=== PATIENT | male | born 1970 | race American Indian/Alaskan Native ===

== ENCOUNTER 2020-10-19 07:52 | Emergency (ER) | payer OTHER ==
[2020-10-19 08:44] LABS: Bilirubin,Urine NEG (Negative); Blood,Urine LG (Negative); Mucus,Urine 3+ /HPF; Urobilinogen,Urine < 2.0 mg/dL (<2.0)
[2020-10-19 08:45] LABS: Color,Urine Amber (Yellow); RBC,Urine > 182.0 /HPF (0.0-6.0); WBC,Urine < 1.0 /HPF (0.0-6.0)
[2020-10-19] MEDS ORDERED: MORPHINE 4 MG/1 ML INJ IM ONE (08:54)
[2020-10-19] MEDS ORDERED: ONDANSETRON 4 MG/2 ML INJ IM ONE (08:54)
[2020-10-19 08:58] LABS: Basophils % (Auto) 0.4 % (0.0-1.8); Eosinophils % (Auto) 0.1 % (0.0-4.3); Hematocrit 46.7 % (35.5-45.6); Hemoglobin 15.2 gm/dl (11.8-15.2); Lymphocytes # (Auto) 0.8 K/mm3 (1.2-5.4); Lymphocytes % (Auto) 8.3 % (13.4-35.0); Mean Corpuscular HGB Conc 33 % (32-34); Mean Corpuscular Volume 84 fl (84-94); Monocytes # (Auto) 0.4 K/mm3 (0.0-0.8); Monocytes % (Auto) 4.3 % (0.0-7.3); Platelet Count 282 K/mm3 (140-440); Red Blood Count 5.55 M/mm3 (3.65-5.03); Red Cell Distribution Width 13.6 % (13.2-15.2)
--- NOTE | 2020-10-19 09:07 | Emergency Department Report ---
ED General Adult HPI - General Chief complaint: Abdominal Pain Stated complaint: BACK/STOMACH PAIN Time Seen by Provider: 10/19/20 08:47 Source: patient Mode of arrival: Ambulatory Limitations: No Limitations - History of Present Illness Initial comments: 50-year-old -[place] male patient without past medical history presents with complaints of sudden onset of right flank pain now moving around to his right side of his abdomen and right lower quadrant starting yesterday. He denies any history of kidney stones. He admits to decreased urination and hematuria, but denies dysuria, testicular pain/swelling, stool changes, or fever/chills/sweats. Patient also admits to nausea and vomiting without hematemesis/coffee-ground emesis. He rates his current pain as a 10/10 in severity and describes it as shooting and aching. -: Sudden - Related Data Previous Rx's Medication Instructions Recorded Last Taken Type HYDROcodone/APAP 5-325 [Lostant 1 each PO Q6HR PRN #10 tablet 10/19/20 Unknown Rx 5-325 mg TAB] Ondansetron [Zofran Odt] 4 mg PO Q8HR PRN #15 tab.rapdis 10/19/20 Unknown Rx Tamsulosin [Flomax] 0.4 mg PO QDAY #5 cap 10/19/20 Unknown Rx Allergies Allergy/AdvReac Type Severity Reaction Status Date / Time No Known Allergies Allergy Unverified 10/19/20 07:56 ED Review of Systems ROS: Stated complaint: BACK/STOMACH PAIN Other details as noted in HPI Constitutional: denies: chills, diaphoresis, fever, malaise, weakness Respiratory: denies: cough, shortness of breath Cardiovascular: denies: chest pain Gastrointestinal: abdominal pain, nausea, vomiting. denies: diarrhea, constipation, hematemesis, melena, hematochezia Genitourinary: frequency, hematuria. denies: urgency, discharge, testicular pain Musculoskeletal: back pain Skin: denies: rash, lesions Neurological: denies: numbness, paresthesias Hematological/Lymphatic: denies: swollen glands ED Past Medical Hx - Past Medical History Previous Medical History?: No - Surgical History Past Surgical History?: No - Social History Smoking Status: Never Smoker Substance Use Type: Alcohol - Medications Home Medications: Home Medications Medication Instructions Recorded Confirmed Last Taken Type HYDROcodone/APAP 5-325 [Lostant 1 each PO Q6HR PRN #10 tablet 10/19/20 Unknown Rx 5-325 mg TAB] Ondansetron [Zofran Odt] 4 mg PO Q8HR PRN #15 tab.rapdis 10/19/20 Unknown Rx Tamsulosin [Flomax] 0.4 mg PO QDAY #5 cap 10/19/20 Unknown Rx ED Physical Exam - General Limitations: No Limitations General appearance: alert, in no apparent distress - Head Head exam: Present: atraumatic, normocephalic - Eye Eye exam: Present: normal appearance - Respiratory Respiratory exam: Present: normal lung sounds bilaterally. Absent: respiratory distress - Cardiovascular Cardiovascular Exam: Present: regular rate, normal rhythm. Absent: systolic murmur, diastolic murmur, rubs, gallop - GI/Abdominal GI/Abdominal exam: Present: soft, tenderness (Right-sided), normal bowel sounds. Absent: distended, guarding, rebound, rigid - Extremities Exam Extremities exam: Present: full ROM - Back Exam Back exam: Present: full ROM, CVA tenderness (R). Absent: vertebral tenderness - Neurological Exam Neurological exam: Present: alert, oriented X3, normal gait - Psychiatric Psychiatric exam: Present: normal affect, normal mood - Skin Skin exam: Present: warm, dry, intact, normal color. Absent: rash ED Course Vital Signs 10/19/20 07:58 Temperature 97.8 F Pulse Rate 71 Respiratory 16 Rate Blood Pressure 156/89 O2 Sat by Pulse 99 Oximetry ED Medical Decision Making - Lab Data Result diagrams: 10/19/20 08:48 10/19/20 08:48 - Radiology Data Radiology results: report reviewed CT ABDOMEN AND PELVIS WITHOUT CONTRAST HISTORY: R flank pain, RLQ pain. COMPARISON: None. TECHNIQUE: CT images of the abdomen and pelvis were obtained without administration of intravenous contrast. All CT scans at this location are performed using CT dose reduction for ALARA by means of automated exposure control. FINDINGS: Lungs/bones: There is small amount of fluid in density within left lower lung on the fissure Abdomen/pelvis: Within limits of a noncontrast exam the liver, spleen, adrenal glands, pancreas, upper GI tract appear normal. There is a calcification the region of the right UVJ measuring approximately 3 to 4 mm with mild right hydroureteronephrosis. Appendix appears normal. Bowel loops appear normal. Inguinal hernia containing fat. IMPRESSION: 1. Obstructing 3 to 4 mm calcification at the right UVJ/inner margin of bladder with right hydroureteronephrosis. 2. Small amount of fluid in the left lower lung. - Medical Decision Making 50-year-old -[place] male patient without past medical history presents with complaints of sudden onset of right flank pain now moving around to his right side of his abdomen and right lower quadrant starting yesterday. He denies any history of kidney stones. He admits to decreased urination and hematuria, but denies dysuria, testicular pain/swelling, stool changes, or fever/chills/sweats. Patient also admits to nausea and vomiting without hematemesis/coffee-ground emesis. He rates his current pain as a 10/10 in severity and describes it as shooting and aching. CT shows 3 to 4 mm stone at the right UVJ with mild right hydronephrosis. Incidental finding of a small amount of fluid in the left lower lung noted on CT. Patient denies any cough, shortness of breath, or chest pain. No significant abnormalities noted on CBC or CMP. UA shows >182 red blood cells without infection. Patient's pain controlled with morphine and Toradol. Patient to follow-up with primary care concerning pleural effusion and urology for kidney stone. Referrals provided. His vitals are normal, he is well- appearing, he is stable for discharge home. Discussed in great detail signs and symptoms that should prompt immediate return to the emergency department in detail with patient who verbalizes understanding. Critical care attestation.: If time is entered above; I have spent that time in minutes in the direct care of this critically ill patient, excluding procedure time. ED Disposition Clinical Impression: Kidney stone, Pleural effusion Disposition: - TO HOME OR SELFCARE Is pt being admited?: No Condition: Stable Instructions: Kidney Stones, Pleural Effusion, Dietary Guidelines to Help Prevent Kidney Stones Prescriptions: Tamsulosin [Flomax] 0.4 mg PO QDAY #5 cap HYDROcodone/APAP 5-325 [Lostant 5-325 mg TAB] 1 each PO Q6HR PRN #10 tablet PRN Reason: Pain , Severe (7-10) Ondansetron [Zofran Odt] 4 mg PO Q8HR PRN #15 tab.rapdis PRN Reason: Nausea Referrals: [facility] [Provider Group] - 2-3 Days LAURA ARANDA MD [Staff Physician] - 3-5 Days (Pleural effusion) Forms: Work/School Release Form(ED)
--- NOTE | 2020-10-19 09:41 | Cat Scan Report ---
CT ABDOMEN AND PELVIS WITHOUT CONTRAST HISTORY: R flank pain, RLQ pain. COMPARISON: None. TECHNIQUE: CT images of the abdomen and pelvis were obtained without administration of intravenous co ntrast. All CT scans at this location are performed using CT dose reduction for ALARA by means of au tomated exposure control. FINDINGS: Lungs/bones: There is small amount of fluid in density within left lower lung on the fissure Abdomen/pelvis: Within limits of a noncontrast exam the liver, spleen, adrenal glands, pancreas, upp er GI tract appear normal. There is a calcification the region of the right UVJ measuring approximately 3 to 4 mm with mild righ t hydroureteronephrosis. Appendix appears normal. Bowel loops appear normal. Inguinal hernia containing fat. IMPRESSION: 1. Obstructing 3 to 4 mm calcification at the right UVJ/inner margin of bladder with right hydrourete ronephrosis. 2. Small amount of fluid in the left lower lung. Signer Name: Nikolay Vallejo MD Signed: 10/19/2020 9:36 AM Workstation Name: [id number]
[2020-10-19] MEDS ORDERED: KETOROLAC 60 MG/2 ML INJ IM ONE (10:33)
[2020-10-19 10:42] LABS: Alanine Aminotransferase 11 units/L (7-56); Albumin 4.6 g/dL (3.9-5); BUN/Creatinine Ratio 9; Blood Urea Nitrogen 12 mg/dL (9-20); Calcium 10.6 mg/dL (8.4-10.2); Hemolysis Index 3
[2020-10-19] MEDS ORDERED: KETOROLAC 30 MG/1 ML INJ IV ONE (10:43)
[2020-10-19 11:33] VITALS: BP 139/79
== END 2020-10-19 11:00 | disposition home or self-care (01) ==
LOC: ED 07:52
DX: N20.0 Calculus of kidney (principal); J90 Pleural effusion, not elsewhere classified; Z79.899 Other long term (current) drug therapy
CPT/HCPCS: 36415; 74176; 80053; 81001; 85025; 96372; 96374; 99284; J1885; J2270; J2405